=== PATIENT | female | born 1970 | race Caucasian/White ===

== ENCOUNTER 2022-04-26 06:16 | Day surgery (SDC) | payer BC ==
[2022-04-18 13:23] VITALS: BMI 28.2
[2022-04-26] MEDS ORDERED: LIDOCAINE HCL 2% (20ML MULTI-DOSE VIAL) ONE (07:08)
[2022-04-26] MEDS ORDERED: PROPOFOL 20 ML ONE ×2 (07:27→09:43)
[2022-04-26] MEDS ORDERED: MIDAZOLAM HCL 2 MG/2 ML SINGLE DOSE VIAL ONE (07:27)
[2022-04-26] MEDS ORDERED: DEXAMETHASONE SOD PHOSPHATE 4 MG/1 ML VIAL ONE (07:45)
[2022-04-26] MEDS ORDERED: ceFAZolin SODIUM 1 GM VIAL ONE (07:45)
[2022-04-26] MEDS ORDERED: ATROPINE SO4 0.4 MG/1 ML VIAL ONE (08:17)
[2022-04-26 08:20] VITALS: TEMP 97.7
[2022-04-26] MEDS ORDERED: ONDANSETRON *ODT* 4 MG TABLET ONE (09:17)
[2022-04-26] MEDS ORDERED: ONDANSETRON 4 MG TABLET PO ONE (09:23)
[2022-04-26 09:27] VITALS: BP 128/74; PULSE 74
== END 2022-04-26 11:04 | disposition home or self-care (01) ==
LOC: FASU 06:16
PROVIDERS: ATTEND Orthopaedic Surgery Hand Surgery
PROC: 01N50ZZ Release Median Nerve, Open Approach (ICD-10-PCS; principal; 2022-04-26 07:51)
DX: G56.01 Carpal tunnel syndrome, right upper limb (principal)
CPT/HCPCS: 81025; Q0162

== ENCOUNTER 2023-04-25 07:56 | Day surgery (SDC) | payer BC ==
[2023-04-18 15:56] VITALS: BMI 29.0
[2023-04-25] MEDS ORDERED: MIDAZOLAM HCL 2 MG/2 ML SINGLE DOSE VIAL ONE (08:55)
[2023-04-25] MEDS ORDERED: PROPOFOL 20 ML ONE (08:56)
[2023-04-25] MEDS ORDERED: LIDOCAINE HCL 2% (20ML MULTI-DOSE VIAL) ONE (09:23)
[2023-04-25] MEDS ORDERED: ACETAMINOPHEN INJECTION 100 ML IVPB ONE (09:24)
[2023-04-25] MEDS ORDERED: ONDANSETRON 4 MG/2 ML VIAL IVPUSH PRN (10:05)
[2023-04-25] MEDS ORDERED: LACTATED RINGERS SOLUTION 1,000 ML IV SCH (10:15)
[2023-04-25 10:31] VITALS: RESP 16
[2023-04-25 10:44] VITALS: TEMP 97.4
[2023-04-25 11:37] VITALS: BP 148/90
[2023-04-25 11:46] VITALS: PULSE 79
== END 2023-04-25 11:46 | disposition home or self-care (01) ==
LOC: FASU 07:56
PROVIDERS: ATTEND Orthopaedic Surgery Hand Surgery
PROC: 01N50ZZ Release Median Nerve, Open Approach (ICD-10-PCS; principal; 2023-04-25 09:46)
DX: G56.02 Carpal tunnel syndrome, left upper limb (principal)
CPT/HCPCS: 94760